=== PATIENT | female | born 1945 | race Caucasian/White ===

== ENCOUNTER 2022-01-10 13:00 | Emergency (ER) | payer OTHER, BC ==
--- NOTE | 2022-01-10 13:56 | RAD REPORT ---
EXAM DESCRIPTION: RAD - Chest Single View - 01/10/2022 1:50 pm CLINICAL HISTORY: High blood pressure Chest pain. COMPARISON: No comparisons FINDINGS: Portable technique limits examination quality. The lungs are grossly clear. The heart is mildly enlarged in size. No displaced fractures. IMPRESSION: No acute intrathoracic process suspected.
[2022-01-10 13:59] LABS: Protime INR 1.03
[2022-01-10 14:02] LABS: Absolute Lymphocytes (CBC) 1.5 K/uL (0.7-4.9); Hematocrit 35.2 % (36.0-45.0); MPV 8.6 fL (7.6-11.3); RBC Red Blood Cell Count 3.72 M/uL (3.86-4.86)
[2022-01-10 14:07] LABS: Albumin 3.9 g/dL (3.4-5.0); Bilirubin Direct 0.1 mg/dL (0-0.2); Bilirubin Total 0.5 mg/dL (0.2-1.0); Magnesium 2.4 mg/dL (1.8-2.4); Potassium 3.9 mmol/L (3.5-5.1); Protein, Total 8.1 g/dL (6.4-8.2); Troponin High Sensitivity 8.2 pg/mL (<58.9)
[2022-01-10] MEDS ORDERED: LORAZEPAM 0.5 MG TABLET ONE (14:08)
--- NOTE | 2022-01-10 14:55 | ER ---
Nurse's Notes [facility] Name: Samia Mccoy Age: 76 yrs Sex: Female : 1945 Arrival Date: 01/10/2022 Time: 13:06 Bed 6 Private MD: Diagnosis: Essential (primary) hypertension;Acute stress reaction Presentation: 01/10 13:23 Chief complaint: Patient states: "My blood pressure has been high today, 216/??. My doctor told me to take another dose of my Amlodipine, but it doesn't seem to be helping." Pt states that she feels fine, and has no complaints at this time. Coronavirus screen: Client denies travel out of the [place] in the last 14 days. Ebola Screen: Patient denies exposure to infectious person. Patient denies travel to an Ebola-affected area in the 21 days before illness onset. Initial Sepsis Screen: Does the patient meet any 2 criteria? No. Patient's initial sepsis screen is negative. Does the patient have a suspected source of infection? No. Patient's initial sepsis screen is negative. Risk Assessment: Do you want to hurt yourself or someone else? Patient reports no desire to harm self or others. Onset of symptoms was January 10, 2022. 13:23 Method Of Arrival: Ambulatory ss 13:23 Acuity: BIJU 2 ss Historical: - Allergies: 13:25 Codeine; ss - Home Meds: 13:25 amlodipine 5 mg tab 1 tab once daily [Active]; valsartan 320 mg oral tab 1 tab once ss daily [Active]; pravastatin 20 mg oral tab 1 tab once daily [Active]; carvedilol 6.25 mg oral tab 1 tab 2 times per day [Active]; - PMHx: 13:25 Hypertensive disorder; ss - Immunization history:: Client reports receiving the 2nd dose of the Covid vaccine. - Social history:: Smoking status: Patient denies any tobacco usage or history of. Screenin:38 Abuse screen: Denies threats or abuse. Nutritional screening: No deficits noted. ll1 Tuberculosis screening: No symptoms or risk factors identified. Fall Risk Total Moore Fall Scale indicates No Risk (0-24 pts). Assessment: 13:37 General: Appears in no apparent distress. Behavior is calm, cooperative, appropriate ll1 for age. Pain: Denies pain. Neuro: Level of Consciousness is awake, alert, obeys commands, Oriented to person, place, time, situation, Appropriate for age Newspaper Writer are equal bilaterally Moves all extremities. Full function Gait is steady, Speech is normal, Facial symmetry appears normal, Reports dizziness, High BP. Cardiovascular: Reports high BP. Respiratory: No deficits noted. GI: No deficits noted. Vital Signs: 13:23 BP 199 / 75; Pulse 69; Resp 17; Temp 97.3(TE); Pulse Ox 99% on R/A; Weight 54.88 kg; ss Height 5 ft. 2 in. (157.48 cm); Pain 0/10; 13:37 BP 169 / 76; Pulse 62; ll1 13:23 Body Mass Index 22.13 (54.88 kg, 157.48 cm) ED Course: 13:06 Patient arrived in ED. mr 13:22 Edwin Lion, RN is Primary Nurse. ll1 13:22 Arm band placed on Patient placed in an exam room, on a stretcher. ll1 13:25 Triage completed. ss 13:31 Inserted saline lock: 20 gauge in right antecubital area, using aseptic technique. ld1 Blood collected. 13:38 Kike Painter, WARM IN WORKER is PHCP. pm1 13:38 Kayla Rios MD is Attending Physician. pm1 13:38 Patient has correct armband on for positive identification. Bed in low position. Call ll1 light in reach. Side rails up X2. panel monitor on. Pulse ox on. NIBP on. 13:50 XRAY Chest (1 view) In Process Unspecified. EDMS 15:07 No provider procedures requiring assistance completed. IV discontinued, intact, ld1 bleeding controlled, No redness/swelling at site. Administered Medications: 14:08 Drug: Ativan (LORazepam) 0.5 mg Route: PO; ld1 Outcome: 14:54 Discharge ordered by . pm1 15:07 Discharged to home ambulatory. ld1 15:07 Condition: stable 15:07 Discharge instructions given to patient, family, Instructed on discharge instructions, follow up and referral plans. medication usage, Demonstrated understanding of instructions, follow-up care, medications. 15:07 Prescriptions given X 1. 15:07 Patient left the ED. ld1 Signatures: Dispatcher [employer] DAGOBERTO Cheryl Truong mr AjRadha armenta, RN RN ss Kike Painter, WARM IN WORKER WARM IN WORKER pm1 Edwin Lion, RN RN ll1 Veronika Holden RN RN ld1
--- NOTE | 2022-01-10 14:55 | EDPHYS ---
Physician Documentation [facility] Name: Samia Mccoy Age: 76 yrs Sex: Female : 1945 Arrival Date: 01/10/2022 Time: 13:06 Bed 6 Private MD: ED Physician Kayla Rios HPI: 01/10 14:02 This 76 yrs old Female presents to ER via Ambulatory with complaints of High Blood pm1 Pressure, Dizziness. 14:02 The patient has elevated blood pressure and discovered this at home, with a home pm1 device. Onset: The symptoms/episode began/occurred today, Patient does not check her blood pressure on a regular basis. She just decided to take it today and noted that her blood pressure was high. Contacted her PCP and was instructed to take an additional norvasc 5mg. Modifying factors: The symptoms are aggravated by Stress. Associated signs and symptoms: Pertinent positives: Dizziness is not new, patient with a history of vertigo. Severity of symptoms: in the emergency department the blood pressure is unchanged. The patient has not experienced similar symptoms in the past. The patient has not recently seen a physician. Patient reports current stressor is her grandson who she raised is up for parole this week and she has been having stress and anxiety over it. Historical: - Allergies: 13:25 Codeine; ss - Home Meds: 13:25 amlodipine 5 mg tab 1 tab once daily [Active]; valsartan 320 mg oral tab 1 tab once ss daily [Active]; pravastatin 20 mg oral tab 1 tab once daily [Active]; carvedilol 6.25 mg oral tab 1 tab 2 times per day [Active]; - PMHx: 13:25 Hypertensive disorder; ss - Immunization history:: Client reports receiving the 2nd dose of the Covid vaccine. - Social history:: Smoking status: Patient denies any tobacco usage or history of. ROS: 14:02 Constitutional: Negative for fever, chills, and weight loss, Cardiovascular: Negative pm1 for chest pain, palpitations, and edema, Respiratory: Negative for shortness of breath, cough, wheezing, and pleuritic chest pain, Abdomen/GI: Negative for abdominal pain, nausea, vomiting, diarrhea, and constipation, Back: Negative for injury and pain, MS/Extremity: Negative for injury and deformity, Skin: Negative for injury, rash, and discoloration. 14:02 Neuro: Positive for vertigo, Negative for headache, numbness, tingling, weakness. 14:02 Psych: Positive for anxiety, Related to family stressors. 14:02 All other systems are negative. Exam: 14:02 Constitutional: This is a well developed, well nourished patient who is awake, alert, pm1 and in no acute distress. Head/Face: Normocephalic, atraumatic. 14:02 Back: No spinal tenderness. No costovertebral tenderness. Full range of motion. 14:02 Skin: Warm, dry with normal turgor. Normal color with no rashes, no lesions, and no evidence of cellulitis. MS/ Extremity: Pulses equal, no cyanosis. Neurovascular intact. Full, normal range of motion. 14:02 Cardiovascular: Exam negative for acute changes, Rate: normal, Rhythm: regular, Pulses: no pulse deficits are appreciated, Heart sounds: normal, normal S1and S2, Edema: is not appreciated. 14:02 Respiratory: Exam negative for acute changes, respiratory distress, shortness of breath, Breath sounds: are clear throughout. 14:02 Abdomen/GI: Exam negative for acute changes, Inspection: abdomen appears normal, Palpation: abdomen is soft and non-tender, in all quadrants. 14:02 Neuro: Exam negative for acute changes, Orientation: is normal, Mentation: is normal, Motor: is normal, moves all fours. Vital Signs: 13:23 BP 199 / 75; Pulse 69; Resp 17; Temp 97.3(TE); Pulse Ox 99% on R/A; Weight 54.88 kg; ss Height 5 ft. 2 in. (157.48 cm); Pain 0/10; 13:37 BP 169 / 76; Pulse 62; ll1 13:23 Body Mass Index 22.13 (54.88 kg, 157.48 cm) ss MDM: 14:01 Patient medically screened. pm1 14:53 Data reviewed: vital signs. Data interpreted: Pulse oximetry: on room air is 99 %. pm1 Interpretation: normal. Counseling: I had a detailed discussion with the patient and/or guardian regarding: the historical points, exam findings, and any diagnostic results supporting the discharge/admit diagnosis, lab results, radiology results, the need for outpatient follow up, to return to the emergency department if symptoms worsen or persist or if there are any questions or concerns that arise at home. 01/10 13:30 Order name: Basic Metabolic Panel; Complete Time: 14:24 01/10 13:30 Order name: CBC with Diff; Complete Time: 14:24 01/10 13:30 Order name: LFT's; Complete Time: 14:24 01/10 13:30 Order name: Magnesium; Complete Time: 14:24 01/10 13:30 Order name: NT PRO-BNP; Complete Time: 14:24 01/10 13:30 Order name: PT-INR; Complete Time: 14:01 01/10 13:30 Order name: Troponin HS; Complete Time: 14:24 01/10 13:30 Order name: XRAY Chest (1 view); Complete Time: 14:01/10 13:30 Order name: EKG; Complete Time: 13:31 01/10 13:30 Order name: Cardiac monitoring; Complete Time: 13:31 01/10 13:30 Order name: EKG - Nurse/Tech; Complete Time: 13:31 01/10 13:30 Order name: IV Saline Lock; Complete Time: 13:31 01/10 13:30 Order name: Labs collected and sent; Complete Time: 13:35 01/10 13:30 Order name: O2 Per Protocol; Complete Time: 13:31 01/10 13:30 Order name: O2 Sat Monitoring; Complete Time: 13:31 ld1 Administered Medications: 14:08 Drug: Ativan (LORazepam) 0.5 mg Route: PO; ld1 Disposition Summary: 01/10/22 14:54 Discharge Ordered Location: Home pm1 Problem: new pm1 Symptoms: have improved pm1 Condition: Stable pm1 Diagnosis - Essential (primary) hypertension pm1 - Acute stress reaction pm1 Followup: pm1 - With: Emergency Department - When: As needed - Reason: Worsening of condition Followup: pm1 - With: Private Physician - When: 2 - 3 days - Reason: Recheck today's complaints, Continuance of care, Re-evaluation by your physician Discharge Instructions: - Discharge Summary Sheet pm1 - Hypertension, Adult pm1 - Stress, Adult pm1 - How to Take Your Blood Pressure, [id number] pm1 - DASH Eating Plan pm1 - Managing Your Hypertension pm1 Forms: - Medication Reconciliation Form pm1 - Thank You Letter pm1 - Antibiotic Education pm1 - Prescription Opioid Use pm1 Prescriptions: - Ativan 0.5 mg Oral Tablet - take 1 tablet by ORAL route every 8 hours As needed; 6 tablet; Refills: 0, pm1 Product Selection Permitted Signatures: Dispatcher [employer] EDCT Radha Rosado RN RN ss Kike Painter NP TRIMMING OPERATOR pm1 Veronika Holden RN RN ld1
[2022-01-10 15:51] VITALS: TEMP 97.3; O2SAT 99
[2022-01-10 16:02] VITALS: BP 169/76
== END 2022-01-10 15:07 | disposition home or self-care (01) ==
LOC: ER 13:00
DX: I10 Essential (primary) hypertension (principal); F43.0 Acute stress reaction; Z88.5 Allergy status to narcotic agent
CPT/HCPCS: 36415; 71045; 80048; 80076; 83735; 83880; 84484; 85025; 85610; 93005; 99284